=== PATIENT | female | born 1995 | race Caucasian/White ===

== ENCOUNTER 2017-10-28 10:59 | Emergency (ER) | payer OTHER ==
[2017-10-28 11:06] VITALS: BP 112/63; BMI 25.7
--- NOTE | 2017-10-28 11:45 | DR.GENAD ---
HPI - PCP Primary Care Physician: alba - HPI Comment HPI Comment: NO BACK TRAUMA. - Complaint/Symptoms Chief Complaint Doctors Comments: LATE MENSTRUATION. HOME TEST POSITIVE. NOW BLEEDING AND HAVING LOWER BACK PAIN. NO DYSURIA. Chief Complaint:: patient stated her last menstural was 10/14/17. 3 days ago and took a home pregnacy test and she stated the line was faint. this morning she has had back pain and some vaginal bleeding. - Nurses notes reviewed Nurses Notes Review: Yes - Source History Provided: Patient - Mode of Arrival Mode of Arrival: Ambulatory - Timing Onset of Chief Complaint: 10/28/17 Came on: Suddenly - Duration Duration: Constant Duration: Hours - Severity Severity: Moderate PMH - PMH Past Medical History: No Past Surgical History: Yes Surgical History: - Family History History of Family Medical Conditions: No - Social History Does patient currently use any type of tobacco product: Yes Have you used tobacco products in the last 12 months: Yes Type of Tobacco Use: Cigarettes How many years tobacco product used: 1 Does any household member use tobacco: No Alcohol Use: None Do you use any recreational Drugs:: No Lives With: Family Lives Where: Home - infectious screening In the last 2 months have you had wt loss of >10#?: NO Have you had fever, night sweats or hemotysis?: No Have you traveled outside the country in the last 6 months?: No Isolation: Standard ROS - Review of Systems Constitutional: No Symptoms Reported Eyes: No Symptoms Reported ENTM: No Symptoms Reported Respiratoy: No Symptoms Reported Cardiovascular: No Symptoms Reported Gastrointestinal/Abdominal: No Symptoms Reported Genitourinary: Bleeding (VAGINAL BLEEDING.) Neurological: No Symptoms Reported Musculoskeletal: No Symptoms Reported Integumentary: No Symptoms Reported Hematologic/Lymphatic: No Symptoms Reported Endocrine: No Symptoms Reported All Other Systems: Reviewed and Negative PE - Vital Signs Vitals: Temperature 98.7 F Pulse Rate 80 Respiratory Rate 16 Blood Pressure 112/63 O2 Sat by Pulse Oximetry 99 - General Limitations: No Limitations General Appearance: Alert - Head Head Exam: Normal Inspection - Eyes Eye exam: Normal Appearance - ENT ENT Exam: Normal External Ear Exam External Ear Exam: Normal External Inspection TM/Canal Exam: Bilateral Normal Nose Exam: Normal Nose Exam Mouth Exam: Normal Inspection Throat Exam: Normal Inspection - Neck Neck Exam: Normal Inspection - Chest Chest Inspection: Symmetric Chest Wall Rise - Respiratory Respiratory Exam: Normal Lung Sounds Bilat Respiratory Exam: Bilateral Clear to Auscultation - Cardiovascular Cardiovascular Exam: Regular Rate, Normal Rhythm, Normal Heart Sounds - Abdominal Exam Abdominal Exam: Normal Bowel Sounds, Soft. negative: Tenderness - Extremities Extremities Exam: Normal Inspection - Back Back Exam: Normal Inspection - Neurologic Neurological Exam: Alert, Oriented X3 - Psychiatric Psychiatric Exam: Anxious - Skin Skin Exam: Erythema MDM - Differential Diagnosis Differential Diagnosis: VAGINAL BLEEDING, LATE MENSTRUATION Course - Treatment Treatment: SEE ORDERS. - Education/Counseling Education/Counseling: Patient, Education Educated On: Diagnosis, Needs for Follow Up ROR - Labs Reviewed Laboratory Results Reviewed?: Yes Laboratory: HCG, Qual Negative <10 mIU/mL 10/28/17 11:46 Specimen Type Random urine 10/28/17 11:30 Urine Color Yellow (YELLOW) 10/28/17 11:30 Urine Appearance Clear (CLEAR) 10/28/17 11:30 Urine pH 6.5 (5.0 - 8.0) 10/28/17 11:30 Ur Specific [place] 1.010 (1.000-1.030) 10/28/17 11:30 Urine Protein Negative (NEGATIVE) 10/28/17 11:30 Urine Glucose (UA) Negative (NEGATIVE) 10/28/17 11:30 Urine Ketones Negative (NEGATIVE) 10/28/17 11:30 Urine Occult Blood 5+ (NEGATIVE) 10/28/17 11:30 Urine Nitrite Negative (NEGATIVE) 10/28/17 11:30 Urine Bilirubin Negative (NEGATIVE) 10/28/17 11:30 Urine Urobilinogen Normal (NORMAL) 10/28/17 11:30 Ur Leukocyte Esterase 1+ (NEGATIVE) 10/28/17 11:30 Urine RBC 0 - 4 /HPF (NEGATIVE) 10/28/17 11:30 Urine WBC 0 - 2 /HPF (NEGATIVE) 10/28/17 11:30 Ur Squamous Epith Cells Moderate /HPF (NEGATIVE) 10/28/17 11:30 Amorphous Sediment 1+ /HPF (NEGATIVE) 10/28/17 11:30 Urine Bacteria Trace /HPF (NEGATIVE) 10/28/17 11:30 Urine Mucus Moderate /HPF (NEGATIVE) 10/28/17 11:30 Ur Culture Indicated? No/not indicated 10/28/17 11:30 - Diagnosis Discharge Problem: Late menses, Vaginal bleeding - Discharge Plan Disposition: 01 HOME, SELF-CARE Condition: Stable - Follow ups/Referrals Follow ups/Referrals: SHELBI BLUNT [Primary Care Provider] - 3 days - Instructions Instructions: Test Information, Back Pain, Adult, [id number] Additional Instructions: RETURN TO ED IF WORSE. YOU ARE ALSO HAVING VAGINAL BLEEDING.
[2017-10-28 12:08] LABS: BILIRUBIN,URINE NEGATIVE (NEGATIVE); BLOOD/HEMOGLOBIN,URINE 5+ (NEGATIVE); GLUCOSE, URINE NEGATIVE (NEGATIVE); KETONES,URINE NEGATIVE (NEGATIVE); LEUKOCYTE ESTERASE ,URINE 1+ (NEGATIVE); NITRITES,URINE NEGATIVE (NEGATIVE); PH,URINE 6.5 (5.0 - 8.0); PROTEIN,URINE NEGATIVE (NEGATIVE); UROBILINOGEN,URINE NORMAL (NORMAL)
[2017-10-28 12:11] LABS: APPEARANCE,URINE CLEAR (CLEAR); COLOR,URINE YELLOW (YELLOW)
[2017-10-28 12:12] LABS: SERUM PREGNANCY TEST, QUAL NEGATIVE <10 mIU/mL
[2017-10-28 12:28] LABS: BACTERIA,URINE TRACE /HPF (NEGATIVE); RBC,URINE 0 - 4 /HPF (NEGATIVE); SQUAMOUS EPITHELIAL CELL,UR MODERATE /HPF (NEGATIVE)
[2017-10-28 12:29] LABS: AMORPHOUS SEDIMENT,UR 1+ /HPF (NEGATIVE); MUCUS,URINE MODERATE /HPF (NEGATIVE)
== END 2017-10-28 12:44 | disposition home or self-care (01) ==
LOC: ER 11:13
DX: N93.9 Abnormal uterine and vaginal bleeding, unspecified (principal); N92.6 Irregular menstruation, unspecified
CPT/HCPCS: 36415; 81001; 84703; 99282